=== PATIENT | female | born 1940 | race Caucasian/White ===

== ENCOUNTER 2019-09-07 12:30 | Outpatient (RCR) | payer MEDICARE, OTHER, SELFPAY ==
--- NOTE | 2019-07-15 14:54 | PTOPEVAL ---
INITIAL PHYSICAL THERAPY EVALUATION and PLAN OF CARE Thank you for referring Jenny to [facility]– [place]. Please review, sign, date and return this plan of care RODRIGUE. She will be followed 1x/wk x 4 wks. I agree with and certify that the following plan of care is medically necessary. Referring Physician Date Admitting Provider: Attending Provider: Faheem Madden, Referring Provider: *PT Outpatient Evaluation Start: 07/15/19 13:32 Freq: Status: Active Protocol: Document 07/15/19 13:30 LIYA (Rec: 07/15/19 14:44 LIYA [email or web address]) Therapy Assessment Status Assessment Status Assessment Status Evaluation Outpatient Past Medical History Neurological History Hx Neurological Disorders No Significant History Cardiovascular History Hx Hypertension Yes Respiratory History Hx Respiratory Disorders No Significant History Gastrointestinal History Hx Gastrointestinal Disorders No Significant History Genitourinary History Hx Genitourinary Disorders No Significant History Musculoskeletal History Hx Back Pain Yes Hx Fractures Yes: 2009 R humerus,R ankle Endocrine History Hx Hypothyroidism Yes HEENT History Hx Cataracts Yes: 2008 Reproductive History Hx Reproductive Disorders No Significant History Psychosocial History Hx Psychiatric Disorders No Significant History Other History Hx Cancer Yes: R breast Hx Radiation Therapy Yes: R breast cancer Evaluation Information Problem Diagnosis low back pain Onset April 2019 Subjective Information Thinks she aggravated her back Query Text:As Reported By Patient/ in April 2019 from Family overdoing the exercises for her back. Saw chiropractor. Pain will begin on L hip/ pelvis then travels to R side. Can get up in middle of night go to bathroom - increased pain, then go back bed - then when gets up for day - can be without pain. Increase pain over weekend - thinks from doing the exercises again. Better today - able to do errands. Pain is usually on L side - but the pain will move across to the R side. Diagnostic Tests X-Rays For This Problem Yes Previous Treatments Previous Treatments For This Problem received PT in past for prior episodes of back david
--- NOTE | 2019-07-29 08:16 | PCPTNOTE ---
Patient called & cancelled scheduled appointment this date due to not feeling well.[ ]
--- NOTE | 2019-08-12 15:13 | PTOPEVAL ---
PHYSICAL THERAPY RE-EVALUATION and UPDATED PLAN OF CARE Thank you for referring Jenny to [facility]. Please review, sign, date and return this updated plan of care RODRIGUE. The PT plan for Jenny is to continue once every 2 wks for 8 wks for further reduction of her back/buttock pain. I agree with and certify that the following plan of care is medically necessary. Referring Physician Date Admitting Provider: Attending Provider: Faheem Madden, Referring Provider: *PT Outpatient Evaluation Start: 07/15/19 13:32 Freq: Status: Active Protocol: Document 08/12/19 10:05 LIYA (Rec: 08/12/19 15:11 LIYA [email or web address]) Therapy Assessment Status Assessment Status Assessment Status Re-evaluation Evaluation Information Problem Subjective Information Jenny reports that her back Query Text:As Reported By Patient/ pain will fluctuate from 8/10 Family to 2/10. Not always sure why she will have increase in pain . More often now - if she does her revised exercises - that will help decrease her pain. She will have pain in L buttock, R lateral flank region, and across lower back - in isolation or in combination. She is still worried about her blood pressure that continues to flutate. In addition - she reports not always sleeping well. She will just wake up or need to get up to use bathroom. Pain Assessment Timing of Pain Assessment Timing of Pain Assessment Assessment Pain Scale Pain Scale Used Numeric (1 - 10) Self Report Pain Assessment Lower Back Reported Pain Level 3 Current Pain Intensity 3 Lowest Pain Intensity 2 Greatest Pain Intensity 8 Pain Score Pain Score 3: Self Report Cervical and Lumbar ROM Lumbar ROM Lumbar Flexion (0-90) 50 Query Text:Active in Degrees Lumbar Extension (0-40) 15 Query Text:Active in Degrees Lumbar Lateral Flexion Right (0-40) 10 Query Text:Active in Degrees Lumbar Lateral Flexion Left (0-40) 15 Query Text:Active in Degrees Lumbar Comments discomfort with lateral flexion Palpation Assessment Palpation Palpation pelvis and sacrum symmetrical. Initially increase in discomfort with P-A mob
--- NOTE | 2019-09-21 09:56 | PCPTNOTE ---
Patient called & cancelled scheduled appointment this date due to family emergency.
--- NOTE | 2019-09-28 12:01 | PCPTNOTE ---
Patient called & cancelled scheduled appointment this date due to Covid-19
--- NOTE | 2019-10-21 10:03 | PCPTNOTE ---
PHYSICAL THERAPY DISCHARGE NOTE Admitting Provider: Attending Provider: Faheem Madden, Patient:Jenny Connors Date of :1940 Jenny has not returned for any further treatments since 09/07/2019, therefore she will be discharged at this time. Patient?s initial visit was on 07/15/2019 and she had a total of 5 visits. She cancelled her 09/21/2019 appointment and she has not called to reschedule and further appointments. The goals have been partially met. Thank you for referring Jenny to [facility]. Please review, sign, date and return this discharge summary RODRIGUE. I have been updated about Jenny's current status and I agree with discharge from the above service at this time. Referring Physician Date
== END 2019-10-13 23:59 | disposition home or self-care (01) ==
LOC: ANHHIPT 12:30
PROVIDERS: PCP Internal Medicine; Visit Provider Internal Medicine
DX: M54.5 Low back pain (principal); R26.89 Other abnormalities of gait and mobility
CPT/HCPCS: 97110; 97140; 97162

== ENCOUNTER 2020-07-04 09:00 | Outpatient (RCR) | payer MEDICARE, OTHER, SELFPAY ==
--- NOTE | 2020-05-27 11:40 | PTOPEVAL ---
INITIAL PHYSICAL THERAPY EVALUATION and PLAN OF CARE Thank you for referring Jenny Connors to [facility].? Jenny is scheduled to be seen for physical therapy? 2x/week for 4 weeks. Please review, sign, date and return this plan of care RODRIGUE. I agree with and certify that the following plan of care is medically necessary. Referring Physician Date Admitting Provider: Attending Provider: Faheem Madden, Referring Provider: *PT Outpatient Evaluation Start: 05/27/20 10:11 Freq: Status: Active Protocol: Document 05/27/20 10:10 LIYA (Rec: 05/27/20 11:38 LIYA [email or web address]) Therapy Assessment Status Assessment Status Assessment Status Evaluation Outpatient Past Medical History Past Medical History Source of Past Medical History Recalled from Previous Visit, Confirmed with Patient/Family Neurological History Hx Neurological Disorders No Significant History Cardiovascular History Hx Hypertension Yes Respiratory History Hx Respiratory Disorders No Significant History Gastrointestinal History Hx Gastrointestinal Disorders No Significant History Genitourinary History Hx Genitourinary Disorders No Significant History Musculoskeletal History Hx Arthritis Yes: both knees Hx Back Pain Yes Hx Fractures Yes: 2008 R humerus,R ankle Endocrine History Hx Hypothyroidism Yes HEENT History Hx Cataracts Yes: 2008 Reproductive History Hx Reproductive Disorders No Significant History Psychosocial History Hx Psychiatric Disorders No Significant History Other History Hx Cancer Yes: R breast, lumpectomy Hx Radiation Therapy Yes: R breast cancer Evaluation Information Problem Diagnosis cervical and L arm pain Onset several month ago Subjective Information Using L UE on railing with Query Text:As Reported By Patient/ going up stairs due to Family increase knee pain. When L UE is acting up - will have increase in discomfort with L upper trap. Most of discomfort lateral upper/mid humeral region. Sleeping is difficult - sometimes arm is overhead, sometimes out to side supported on pillows. Mornings - sometimes pretty good, sometimes painful - heating pad on shoulder helps. Sometimes discomfort with reaching up into cabinets. Worse discomf
--- NOTE | 2020-06-06 14:53 | PCPTNOTE ---
Patient called & cancelled scheduled appointment this date due to not feeling well.
--- NOTE | 2020-06-15 09:22 | PCPTNOTE ---
Patient called & cancelled scheduled appointment this date due to blood pressure issues.
--- NOTE | 2020-07-04 14:04 | PTOPEVAL ---
PHYSICAL THERAPY DISCHARGE SUMMARY Thank you for referring Jenny Connors to [facility].? Jenny was seen for 8 visits in PT. ROM, strength, and functional goals were met. Pain levels at times can still be elevated. She does find relief with HEP - which she was encouraged to continue to perform. I agree with Jenny's discharge from PT. Referring Physician Date Admitting Provider: Attending Provider: Faheem Madden, Referring Provider: *PT Outpatient Evaluation Start: 05/27/20 10:11 Freq: Status: Active Protocol: Document 07/04/20 09:10 LIYA (Rec: 07/04/20 10:02 LIYA [email or web address]) Therapy Assessment Status Assessment Status Assessment Status Discharge Evaluation Information Problem Subjective Information Jenny states that her back Query Text:As Reported By Patient/ began acting up on [employer] [facility] and has continued to be aggravated. She states that the mornings are better then after a couple of hours will feel more discomfort. She hasn't been doing her arm exercises much lately due to the back pain but she does get relief from L shoulder pain with the exercises. Reaching behind her will still cause the most discomfort. Pain Assessment Timing of Pain Assessment Timing of Pain Assessment Assessment Pain Scale Pain Scale Used Numeric (1 - 10) Self Report Pain Assessment Left Shoulder(s) Reported Pain Level 0 Lowest Pain Intensity 0 Greatest Pain Intensity 9 Additional Pain Comments pain worse with reaching around back Pain Score Pain Score 0: Self Report Upper Extremity Range of Motion Scapular/ Shoulder Range of Motion Left Shoulder Flexion - Active 160 Shoulder Extension - Active 52 Shoulder Abduction - Active 155 Shoulder Medial Rotation - Active 90 Shoulder Medial Rotation - Active T6 Query Text:Reach Behind the Back Shoulder Lateral Rotation - Active 80 Shoulder Lateral Rotation - Active T3 Query Text:Reach Behind the Head Scapular/Shoulder Range of Motion initial motion into extension Comments did cause some discomfort Palpation Assessment Palpation Palpation no tenderness at supraspinatus tendon but L long head of biceps tendon is tender to touch. PT Clinical Summary Clinical Summary Protocol: PTEVCODE PT Clinical Summary
== END 2020-08-09 10:14 | disposition home or self-care (01) ==
LOC: ANHHIPT 09:00
PROVIDERS: PCP Internal Medicine; Visit Provider Internal Medicine
DX: M54.2 Cervicalgia (principal); M25.512 Pain in left shoulder
CPT/HCPCS: 97110; 97140; 97161

== ENCOUNTER 2022-09-26 09:00 | Outpatient (RCR) | payer MEDICARE, SELFPAY ==
--- NOTE | 2022-08-28 16:42 | BUPTOPEVAL1 ---
Assessment and note entered by Ana Schmitz, PT Evaluation Information Assessment Status Evaluation Diagnosis Unsteadiness Subjective Information History of knee arthritis, leg length discrepancy, fall in 2009 broke her right shoulder. Reports she occasionally toe drags, seems to be just the right with the long leg. Does have a foam pad in left heel which helps. Reports does not like to take pills (medications) Pt does report has less than normal feeling in the bottom of her feet. States has been going on a long time. Prior doctor stated if might be neuropathy and there was nothing could do for it or could be poor circulation. Reports also usually does exercises for her knees and back in the mornings laying in bed. Has greatest difficulty with standing long periods due to back pain, changing directions, toe dragging Denies having dizzy spells Reported Pain Level Pain Score 0: Self Report Assessment PT Clinical Summary Pt presents for unsteadiness of gait, denies dizziness, reports decreased feeling in bilat feet that has been chronic. In addition to this, pt reports history of chronic back pain, leg length discrepancy, and bilat knee arthritis she receives shots for. today pt demo's gait abnormalities consistent with balance deficits, decreased ankle dorsiflexion, unsupportive shoe tang effecting balance, and decreased strength overall. Pt will benefit from therapy in order to educate pt on safety, technique, to address flexibility, strength, balance, and gait in order to allow pt to be the most safe and independent functional level. Plan of Care Interventions Gait Training,Neuro Re-education,Patient/Caregiver Educati,Prosthetic Training,Therapeutic Activities,Therapeutic Exercise,Self-Care/Home Management PT Services Indicated Yes Treatment Frequency and 2x weekly x 4 weeks Duration These treatments will address the objective and functional deficits as defined above. The patient will be advanced safely and appropriately in order for the patient to progress towards his/her prior level of function. Additional exercises will be introduced and as well as a comprehensive home exercise program upon discharge, if needed, ?to ensure carryover of functional gains achieved in the clinic. This treatment plan has been reviewed and agreement upon by the patient.
--- NOTE | 2022-08-31 13:43 | PCPTNOTE ---
Patient arrived to appointment and states she does not feel she is able to do therapy this date. Patient reports she is hurting so bad she feels she needs to go home. Offered modalities, soft tissue mobilization, and modification for treatments and patient continued to deny 3 times.
--- NOTE | 2022-09-13 11:04 | PCPTNOTE ---
Patient called & cancelled scheduled appointment this date due to stating her blood pressure is high. This is the second cancellation due to patient absence versus staffing shortage.
--- NOTE | 2022-10-17 08:46 | PTOPDC ---
Assessment and note entered by Ana Schmitz, PT Assessment Status Discharge - Pt Not Present Diagnosis Unsteadiness Subjective Information Pt reports exercises have helped, has learned a (09/26/22) lot from them. Feels can control her muscles better. Reports her eye was swollen on Saturday and now is twitching, can't get into eye doctor for shot. Reports has not had a chance to do her exercises yet. Feels toe drag has gotten whole lot better but occasionally does sneak up on her but then she pays more attention. Reports her blood pressure is high today so is a little woozy. Opts to continue therapy session. Assessment PT Clinical Summary Pt initially presented to 5 sessions from 08/28/22 to 09/26/22. At her last reevaluation on 09/26/22 she opted to continue therapy but has not returned . She has cancelled 4 visits overall (not including the visits cancelled due to therapist illness) and thus is outside our attendance policy . Thus she is being discharged from therapy due to nonattendance.
== END 2022-10-17 09:42 | disposition home or self-care (01) ==
LOC: ANHHIPT 09:00
PROVIDERS: PCP Physician Assistant Medical; Visit Provider Physician Assistant Medical
DX: R29.3 Abnormal posture (principal); R26.89 Other abnormalities of gait and mobility
CPT/HCPCS: 97110; 97112; 97140; 97161

== ENCOUNTER 2024-04-24 09:15 | Outpatient (RCR) | payer MEDICARE, SELFPAY ==
--- NOTE | 2024-04-06 16:46 | PTOPEVAL1 ---
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 Started using cane a couple weeks ago for balance purposes. Has 12 step stairs at home to basement, has difficulty going up and down but has 1 hand rail to hang on and she has been using consistently due to fear of knees buckling. Also states she has bad tinnitus and hearing issues but denies dizziness, states she most often just feels unsteady on her feet; increasing discomfort with long distance ambulation due to neuropathy. Personal goal is to be able to walk normally without having to worry about falling. Reported Pain Level Pain Score 8: Self Report Assessment PT Clinical Summary Pt is an 83yo female who presents to therapy with c/o balance issues and gait abnormalities secondary to neuropathy to bilat feet, chronic tinnitus and pain to L knee impacting safety with safe transfers and ambulation. She will greatly benefit from skilled PT to manage pain, address deficits, improve balance and reduce risk for falls. Plan of Care Interventions Check Out for Orthotic/Pr,Electrical Stimulation, Gait Training,Hot Pack/Cold Pack,Manual Therapy, Neuro Re-education,Patient/Caregiver Education, Therapeutic Activities,Therapeutic Exercise, Ultrasound Other Interventions Taping PT Services Indicated Yes Treatment Frequency and 2x/wk x 10 visits Duration These treatments will address the objective and functional deficits as defined above. The patient will be advanced safely and appropriately in order for the patient to progress towards his/her prior level of function. Additional exercises will be introduced and as well as a comprehensive home exercise program upon discharge, if needed, ?to ensure carryover of functional gains achieved in the clinic. This treatment plan has been reviewed and agreement upon by the patient.
--- NOTE | 2024-04-09 12:07 | OPREHPOC ---
Outpatient Therapy Plan of Care This is a Multidisciplinary Plan of Care that may contain components documented by all disciplines (PT, OT, and ST.) PT Problem 1 PT Problem #1 Knowledge Deficit PT Goal 1 Goal / Goal Update Pt will demo good understanding of diagnosis and prognosis; HEPs for balance and BLE strengthening. Target Visit 10 PT Problem 2 PT Problem #2 Pain PT Goal 1 Goal / Goal Update Pt will report 2-3/10 at worst when standing and walking distances. Target Visit 10 PT Problem 3 PT Problem #3 Impaired Strength PT Goal 1 Goal / Goal Update Pt will demo 5/5 BLE strength to all tested planes . PT Problem 4 PT Problem #4 Impaired Gait PT Goal 1 Goal / Goal Update Pt will demo normalized gait pattern with improved foot clearance and decreased postural sway with turns and directional changes. Target Visit 10 PT Problem 5 PT Problem #5 Impaired Balance PT Goal 1 Goal / Goal Update Pt will report 21/28 or more of Tinetti Assessment score to reduce risk for falls. Target Visit 10
--- NOTE | 2024-06-01 09:43 | PTOPDC ---
Assessment and note entered by Ana Schmitz, PT Evaluation Information Assessment Status Evaluation Diagnosis r26.89, g62.9 ICD-10 Condition Codes (PT) Pain in right hip M25.551,Pain in left hip M25.552 ,M25.561,Pain in left knee M25.562,M25.571,M25.572 ,Difficulty Walking R26.2,R26.9,Weakness R53.1 Onset December 2022 Assessment PT Clinical Summary Pt attended evaluation and once visit then called and requested discharged from therapy. Pt did not complete her plan of care thus her goals were unmet and untested Plan of Care PT Services Indicated no
--- NOTE | 2024-06-01 13:42 | PTOPDC ---
Assessment and note entered by Ana Schmitz, PT Evaluation Information Assessment Status Discharge - Pt Not Present Diagnosis r26.89, g62.9 ICD-10 Condition Codes (PT) Pain in right hip M25.551,Pain in left hip M25.552 ,M25.561,Pain in left knee M25.562,M25.571,M25.572 ,Difficulty Walking R26.2,R26.9,Weakness R53.1 Onset December 2022 Subjective Information Pt reports chronic neuropathy to bilat feet, had a fall last year and hurt her ribs but was able to recover after that. Started using cane a couple weeks ago for balance purposes. Has 12 step stairs at home to basement, has difficulty going up and down but has 1 hand rail to hang on and she has been using consistently due to fear of knees buckling. Also states she has bad tinnitus and hearing issues but denies dizziness, states she most often just feels unsteady on her feet; increasing discomfort with long distance ambulation due to neuropathy. Personal goal is to be able to walk normally without having to worry about falling. Assessment PT Clinical Summary Pt attended one evaluation and one visit then requested to cancel her remaining visits. Thus we are discharging at this time due to nonattendance. Plan of care was untested and incomplete. Goals were not met. Plan of Care PT Services Indicated No
== END 2024-06-01 13:51 | disposition home or self-care (01) ==
LOC: ANHHIPT 09:15
PROVIDERS: PCP Physician Assistant Medical; Visit Provider Physician Assistant Medical
DX: R26.89 Other abnormalities of gait and mobility (principal); G62.9 Polyneuropathy, unspecified
CPT/HCPCS: 97014; 97035; 97110; 97161; 97530; G0283

== ENCOUNTER 2024-09-16 10:00 | Outpatient (RCR) | payer MEDICARE, SELFPAY ==
--- NOTE | 2024-09-10 14:47 | PTOPEVAL1 ---
Assessment and note entered by Tarah Rivas, PT Evaluation Information Assessment Status Evaluation Diagnosis R29.818, G62.9, M25.561, M25.562 ICD-10 Condition Codes (PT) Pain in right knee M25.561,Pain in left knee M25. 562,Difficulty Walking R26.2,Abnormalities of gait and mobility R26.9,Weakness R53.1 Onset flare up ~a month ago Subjective Information Acute flare up of chronic pain to bilateral knees L > R, received Cortisone shots to bilat knees ~3 months ago and was told by doctor to take a break from therapy for a while; bakers cyst on were drained, states doctor also took fluid out from top of her knees. Takes Tylenol arthritis which barely helped, was prescribed meloxicam but refused to take the medication. Difficulty with getting up/down stairs, getting in and out of the car, pain also slows her down when doing daily activities. States performs exercises for the back regularly before she gets up in the morning and rides the stationary bike. Pt wants to get rid of the pain, get stronger and improve balance so she wont fall. Reported Pain Level Pain Score 0: Self Report Additional Pain Score Comments does not feel pain when resting or seated, pain increases with weight bearing and walking. Assessment PT Clinical Summary 83yo patient presents to therapy with various problems of BLE and balance. Main concern is the flare up of bilateral knee pain and the discomfort secondary to the pressure on the mathews's cyst of bilateral popliteal fossa. Demos ROM deficits, weakness, LEFs score of 28 indicating moderate disability, Tinetti and 5xSTS score results indicate pt is a fall risk, shows gait deviation despite ambulating with a cane. She will greatly benefit from skilled PT to manage pain, improve flexibility, strength and endurance and improve balance and gait in order to continue performing indep functional mobility and community ambulation using a least restrictive AD and to reduce risk for falls. Plan of Care Interventions Check Out for Orthotic/Prosthetic,Electrical Stimulation,Gait Training,Hot Pack/Cold Pack, Intermittent Compression Pump,Manual Therapy,Neuro Re-education,Patient/Caregiver Education, Therapeutic Activities,Therapeutic Exercise, Ultrasound,Other Other Interventions IASTM, Taping PT Services Indicated Yes Treatment Frequency and 2x/wk x 10 visits Duration These treatments will address the objective and functional deficits as defined above. The patient will be advanced safely and appropriately in order for the patient to progress towards his/her prior level of function. Additional exercises will be introduced and as well as a comprehensive home exercise program upon discharge, if needed, ?to ensure carryover of functional gains achieved in the clinic. This treatment plan has been reviewed and agreement upon by the patient.
--- NOTE | 2024-10-01 08:26 | PCPTNOTE ---
Admitting Provider: Attending Provider: Juani Springer PA-C Patient:Jenny Connors Date of :1940 Patient?s initial visit was on 09/10/2024 10:15 and she had a total of two visits including evaluation. She scheduled and cancelled her appointments until today (10/01/24) when she cancelled all her remaining appointments The goals have not been met. Thank you for this referral and your confidence in us. We look forward to seeing your patients in the future.
== END 2024-10-01 08:35 | disposition home or self-care (01) ==
LOC: ANHHIPT 10:00
PROVIDERS: PCP Physician Assistant Medical; Visit Provider Physician Assistant Medical
DX: M25.561 Pain in right knee (principal); M25.562 Pain in left knee; R29.818 Other symptoms and signs involving the nervous system; G62.9 Polyneuropathy, unspecified
CPT/HCPCS: 97014; 97110; 97161; G0283

== ENCOUNTER 2025-01-26 09:30 | Outpatient (RCR) | payer MEDICARE, SELFPAY ==
--- NOTE | 2025-01-14 10:20 | OPREHPOC ---
Outpatient Therapy Plan of Care This is a Multidisciplinary Plan of Care that may contain components documented by all disciplines (PT, OT, and ST.) PT Problem 1 PT Problem #1 Knowledge Deficit PT Goal 1 Goal / Goal Update Pt will be independent in HEP Pt will verbalize understanding of diagnosis and prognosis Target Visit 10 PT Problem 2 PT Problem #2 Impaired Gait PT Goal 1 Goal / Goal Update Pt will demonstrate erect gait with or without AD Target Visit 10 PT Goal 2 Goal / Goal Update Pt will demonstrate normalized gait pattern without forward flexion at hips and without AD Will demonstrate ability to ascend stairs x 12 with reciprocal pattern and railing Target Visit 20 PT Problem 3 PT Problem #3 Impaired Strength PT Goal 1 Goal / Goal Update Pt will demonstrate quads and hamstring strength of 3+/5 for improved knee support Target Visit 10 PT Goal 2 Goal / Goal Update Pt will demonstrate quads and hamstring strength of 4/5 for improved knee support Target Visit 20 PT Problem 4 PT Problem #4 Impaired Balance PT Goal 1 Goal / Goal Update Pt will demonstrate 5 times sit>stand testing without UE assist in 15 seconds Target Visit 20
--- NOTE | 2025-01-14 10:20 | PTOPEVAL1 ---
Assessment and note entered by Ana Schmitz, PT Evaluation Information Assessment Status Evaluation Diagnosis Pain in unspec knee, Oth. 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 Reports also has arthritis and has to have her knee replaced. Doesn't know that therapy will be helpful. States also has multiple broken teeth before she can get the knee replaced. But would have to go to [facility] for this and reports can't not get there due to drive. Also reports having some new medical problems like low iron, and relying on food pantry locally as well. States she doesn't have a computer and doesn't know how to access her insurances to change coverage. Would like to get inflammation down in her left knee. Dr. Mares sent her to [place], received cortisone shots in her knees most recently ~1 month ago. Is set to go back in March Can't squat and has to go up and down steps one at a time. Reported Pain Level Pain Score 0: Self Report Additional Pain Score Comments Pain increased with sit>stand testing Assessment PT Clinical Summary Pt is known to therapist from prior plans of care. She has a history of being noncompliant with therapist advice and education and usually requests discharge early in plan. Today she presents with left knee pain and arthritis, shows increased valgus angle, poor supportive shoes putting greater tension on knee valgus angle, decreased strength, decreased balance, and abnormal gait. Appears resistant to education related to balance training being of assistance she reports due to her neuropathy and her Tinnitus . Pt also states she is planning on having a knee replacement though she has multiple other factors to line out prior to this. Educated therapy can assist with pre-hab to improve strength and range prior to surgery to allow improved outcomes after surgery. Pt will benefit from physical therapy to address deficits, educate patient on local resources to assist in her daily functioning , and improve overall quality of life. Plan of Care Interventions Electrical Stimulation,Gait Training,Hot Pack/Cold Pack,Manual Therapy,Neuro Re-education,Patient/ Caregiver Education,Therapeutic Activities, Therapeutic Exercise,Self-Care/Home Management, Ultrasound,Other Other Interventions Taping, Bracing PT Services Indicated Yes Treatment Frequency and 2x weekly x 10 visits Duration These treatments will address the objective and functional deficits as defined above. The patient will be advanced safely and appropriately in order for the patient to progress towards his/her prior level of function. Additional exercises will be introduced and as well as a comprehensive home exercise program upon discharge, if needed, ?to ensure carryover of functional gains achieved in the clinic. This treatment plan has been reviewed and agreement upon by the patient.
--- NOTE | 2025-02-08 08:22 | PCPTNOTE ---
Admitting Provider: Attending Provider: Juani Springer PA-C Patient:Jenny Connors Date of :1940 Patient?s initial visit was on 01/14/2025 09:30 and she had a total of 3 visits. She called today and requested discharge due to having too many appts coming up. The goals have not been met.
== END 2025-02-08 08:28 | disposition home or self-care (01) ==
LOC: ANHHIPT 09:30
PROVIDERS: PCP Physician Assistant Medical; Visit Provider Physician Assistant Medical
DX: R26.89 Other abnormalities of gait and mobility (principal); M25.562 Pain in left knee; R26.2 Difficulty in walking, not elsewhere classified; R26.9 Unspecified abnormalities of gait and mobility; R53.1 Weakness
CPT/HCPCS: 97014; 97110; 97112; 97140; 97161; 97530; G0283